=== PATIENT | female | born 1990 | race Two or more races ===

== ENCOUNTER 2017-07-08 19:47 | Emergency (ER) | payer OTHER ==
[~2017-07-08] VITALS: Ht 165.1 cm; Wt 62.6 kg
[2017-07-08 21:06] LABS: Urine Bilirubin Negative (Negative); Urine Blood Negative /uL (Negative); Urine Color Yellow (Yellow); Urine Glucose Normal (Normal); Urine Ketone Negative (Negative); Urine Mucus FEW (None Seen); Urine Nitrite Negative (Negative); Urine RBC <1 /hpf (0 - 4); Urine Squamous Epithelial Cell FEW /hpf (<5); Urine Urobilinogen Normal (Negative); Urine pH 6.5 (5.0-8.0)
[2017-07-08 23:09] VITALS: BP 156/98
[2017-07-08 23:12] LABS: Basophils # (auto) 0.1 uL; Basophils % (auto) 0.6 % (0.0-2.0); Eosinophils # (auto) 0.1 uL; Eosinophils % (auto) 1.5 % (0.0-7.0); Lymphocytes # (auto) 2.8 uL; Lymphocytes % (auto) 28.1 % (10.0-50.0); Mean Platelet Volume 7.4 fL (6.9-10.8); Monocytes # (auto) 0.5 uL; Monocytes % (auto) 5.2 % (0.0-12.0); Neutrophils # (auto) 6.4 uL; Neutrophils % (auto) 64.6 % (37.0-80.0); Nucleated Red Blood Cells % 0.1 %; Platelet Count (auto) 332 10^3/uL (140-450); Red Cell Distribution Width 13.2 % (11.8-14.3)
[2017-07-08 23:25] LABS: INR 0.94 (0.9-1.15); Partial Thromboplastin Time 25.2 sec (22.64-33.71); Prothrombin Time 10.2 sec (9.37-12.3)
[2017-07-08 23:29] LABS: Albumin 4.2 g/dL (3.4-5.0); BUN/Creatinine Ratio 22.9; Calcium 9.2 mg/dL (8.5-10.1); Potassium 3.7 mmol/L (3.5-5.1)
[2017-07-08 23:37] LABS: Bilirubin, Total 0.2 mg/dL (0.2-1.0); Total Protein 8.7 g/dL (6.4-8.2)
[2017-07-09] MEDS ORDERED: ONDANSETRON ODT 4 MG TAB PO ONE (01:15)
== END 2017-07-09 01:20 | disposition home or self-care (01) ==
LOC: ER 19:47
DX: R11.2 Nausea with vomiting, unspecified (principal); R55 Syncope and collapse
CPT/HCPCS: 36415; 70450; 80053; 81001; 81025; 85025; 85610; 85730